=== PATIENT | male | born 1985 | race Caucasian/White ===

== ENCOUNTER 2017-10-05 18:00 | Emergency (ER) | payer MEDICAID ==
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
[2017-10-05 21:16] LABS: ACETAMINOPHEN 0 ug/mL (10-30)
--- NOTE | 2017-10-06 07:50 | CT ---
Head CT Technique: Multiple axial sections through the brain were obtained. Intravenous contrast was not utilized. Comparison: No previous intracranial imaging. Findings: Ventricles along with basal cisterns and sulci over the convexities appear within normal limits for the patient's age. Small low density is area identified within the left anterior parietal region in a subcortical location. This finding measures approximately 7 mm. No other abnormal parenchymal densities are seen. No evidence of intracranial hemorrhage. No midline shift or mass effect is identified. Bone window settings were reviewed which show scattered mucosal thickening within the ethmoid and frontal sinuses. No acute calvarial abnormality is seen. Impression: 1. Small low-density abnormality within the anterior left parietal region. This is likely incidental although MRI study with contrast recommended to confirm. 2. Sinus findings which are likely pre-existing and chronic. 3. No acute intracranial abnormality is identified. Diagnostic code #3 Mostly agree with preliminary report issued by [facility], additional finding as described above for which MRI is recommended ([facility] preliminary report dictated on 10/05/17, 10:55 PM Central Time)
== END 2017-10-06 18:41 ==
LOC: JD.ED 18:00
DX: F91.9 Conduct disorder, unspecified (principal); F32.9 Major depressive disorder, single episode, unspecified; F17.210 Nicotine dependence, cigarettes, uncomplicated; Z79.899 Other long term (current) drug therapy
CPT/HCPCS: 36415; 70450; 80053; 80306; 81003; 84443; 85025; 99285; G0480